=== PATIENT | female | born 1965 ===

== ENCOUNTER → 2023-09-07 | Outpatient (CLI) | payer BC ==
[2023-09-12 10:14] LABS: HPV GENOTYPE 16 Not Detected; HPV GENOTYPE 18 Not Detected; HPV HIGH RISK Not Detected; HPV SOURCE Cervical
== END ==
LOC: LAB SHORT 12:50 → LAB 12:50
PROVIDERS: Nurse Practitioner Family
DX: Z01.419 Encounter for gynecological examination (general) (routine) without abnormal findings (principal)
CPT/HCPCS: 87624; G0123